=== PATIENT | female | born 1940 | race Caucasian/White ===

== ENCOUNTER → 2016-06-16 | Outpatient (CLI) | payer MEDICARE ==
[~2016-06-16] MED LIST: CATHETER FLUSH 10 ML SYR IV PRN; IOHEXOL 350 MG/ML 100 ML (OMNIPAQUE 350) VIAL IV ONE; NS 100 ML (IVPB) BAG IV ONE
--- OUTSIDE RECORDS SUMMARY | 2016-06-16 12:43 | XMS REPORT | Continuity of Care Document ---
Author Author [facility] Organization [facility] Address Unknown Phone Unavailable Allergies Medications Problems Date Dx Coded Attending Type Code Diagnosis Diagnosed By 04/03/2015 Ot 599.70 04/03/2015 Ot 789.00 04/03/2015 Ot 785.6 04/03/2015 Ot 789.00 04/03/2015 Ot 780.79 04/03/2015 Ot 786.09 04/03/2015 Ot 789.01 04/03/2015 Ot V58.69 04/03/2015 JUAN SWAN PRODUCTION QUALITY MANAGER Ot 780.79 04/03/2015 JUAN SWAN PRODUCTION QUALITY MANAGER Ot 786.50 04/08/2015 CANDI SWAN DO Ot R10.9 04/08/2015 CANDI SWAN DO Ot R31.9 05/07/2015 CANDI SWAN DO Ot R10.9 05/07/2015 CANDI SWAN DO Ot R31.9 05/22/2015 CANDI SWAN DO Ot R10.9 05/22/2015 CANDI SWAN DO Ot R31.9 12/23/2015 Ot 599.70 HEMATURIA, UNSPECIFIED 12/23/2015 Ot 789.00 ABDOMINAL PAIN, UNSPECIFIED SITE 12/23/2015 Ot 785.6 ENLARGEMENT LYMPH NODES 12/23/2015 Ot 789.00 ABDOMINAL PAIN, UNSPECIFIED SITE 12/23/2015 Ot 780.79 OTH MALAISE FATIGUE 12/23/2015 Ot 786.09 RESPIRATORY ABNORM NEC 12/23/2015 Ot 789.01 ABDOMINAL PAIN, RIGHT UPPER QUADRANT 12/23/2015 Ot V58.69 OTH MED,LT,CURRENT USE 12/23/2015 JUAN SWAN PRODUCTION QUALITY MANAGER Ot 780.79 OTH MALAISE FATIGUE 12/23/2015 JUAN SWAN PRODUCTION QUALITY MANAGER Ot 786.50 CHEST PAIN NOS 12/23/2015 CANDI SWAN DO Ot R10.9 UNSPECIFIED ABDOMINAL PAIN 12/23/2015 CANDI SWAN DO Ot R31.9 HEMATURIA, UNSPECIFIED 12/25/2015 JUAN SWAN Ot 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 Visit Date/Time Discharge Status Pt. Type Provider Facility Loc./Unit Complaint [id number] 04/03/2015 14:39:00 2014 23:59:59 CLS Outpatient CANDI SWAN DO [facility] RAD FLANK PAIN, HEMATURIA [id number] 11/01/2012 07:19:00 2012 23:59:59 CLS Outpatient JUAN SWAN [facility] CARD FATIGUE [id number] 12/23/2015 10:23:00 ACT Outpatient JUAN SWAN [facility] RAD THYROMEGALY [id number] 03/23/2012 10:51:00 Document Registration [id number] 06/03/2011 08:37:00 Document Registration [id number] 05/07/2011 12:46:00 Document Registration
[2016-06-16 12:59] LABS: BASOPHILS % (AUTO) 0 % (0-10); EOSINOPHILS % (AUTO) 1 % (0-10); LYMPHOCYTES # (AUTO) 1.2 X 10^3 (1.0-4.0); LYMPHOCYTES % (AUTO) 26 % (12-44); MEAN CORPUSCULAR HEMOGLOBIN 30 PG (25-34); MEAN CORPUSCULAR HGB CONC 33 G/DL (32-36); MEAN CORPUSCULAR VOLUME 93 FL (80-99); MEAN PLATELET VOLUME 10.5 FL (7.4-10.4); MONOCYTES # (AUTO) 0.6 X 10^3 (0.0-1.0); MONOCYTES % (AUTO) 13 % (0-12); NEUTROPHILS # (AUTO) 2.8 X 10^3 (1.8-7.8); NEUTROPHILS % (AUTO) 61 % (42-75); PLATELET COUNT 178 10^3/uL (130-400); RED BLOOD COUNT 4.37 10^6/uL (4.35-5.85); RED CELL DISTRIBUTION WIDTH 13.7 % (10.0-14.5); WHITE BLOOD COUNT 4.6 10^3/uL (4.3-11.0)
[2016-06-16 13:12] LABS: ALANINE AMINOTRANSFERASE 24 U/L (0-55); ALBUMIN 4.3 G/DL (3.2-4.5); ANION GAP 7 MMOL/L (5-14); ASPARTATE AMINO TRANSFERASE 26 U/L (5-34); BILIRUBIN,TOTAL 0.3 MG/DL (0.1-1.0); BLOOD UREA NITROGEN 14 MG/DL (7-18); BUN/CREATININE RATIO 18; CALCIUM 9.9 MG/DL (8.5-10.1); CARBON DIOXIDE 28 MMOL/L (21-32); CHLORIDE 102 MMOL/L (98-107); CREATININE SERUM 0.77 MG/DL (0.60-1.30); GFR ESTIMATED > 60; GLUCOSE 99 MG/DL (70-105); POTASSIUM 4.1 MMOL/L (3.6-5.0); SODIUM 137 MMOL/L (135-145); TOTAL PROTEIN 7.6 G/DL (6.4-8.2)
--- NOTE | 2016-06-16 14:00 | Diagnostic Imaging Report ---
PROCEDURE: CT abdomen and pelvis with and without contrast. TECHNIQUE: Precontrast acquisitions were acquired through the abdomen and pelvis. Multiple contiguous axial images were obtained through the abdomen and pelvis after the administration of intravenous contrast. INDICATION: Flank pain. CONTRAST: 100 mL of Omnipaque 350 was administered intravenously. FINDINGS: The lung bases demonstrate no significant consolidation. The liver, gallbladder, spleen, pancreas, and adrenals appear unremarkable. There are surgical clips seen in the retroperitoneum which may relate to prior lymph node dissection. Correlate with surgical history. The abdominal aorta is normal in caliber. No eusebio-aortic significantly enlarged lymph nodes are seen. The kidneys have symmetric enhancement and contrast excretion. There is no hydronephrosis. The unenhanced phase demonstrates no stones. The colon demonstrates numerous diverticuli, particularly in the sigmoid segment, without evidence of diverticulitis. The appendix appears normal. No bowel obstruction. No significant free fluid or fluid collection in the abdomen or pelvis is seen. The uterus and adnexa appear grossly unremarkable. The osseous structures demonstrate degenerative changes in the mid lumbar spine with a vacuum disc at the L3-4 level. IMPRESSION: 1. Diverticulosis. No diverticulitis. 2. No urinary tract stones. No hydronephrosis. Dictated by: Dictated on workstation # [id number]
[2016-06-16 14:20] LABS: ERYTHROCYTE SEDIMENTATION RATE 40 MM/HR (0-30)
== END ==
LOC: RAD 12:39
PROVIDERS: ATTEND Nurse Practitioner Family
DX: K57.90 Diverticulosis of intestine, part unspecified, without perforation or abscess without bleeding (principal); R31.9 Hematuria, unspecified
CPT/HCPCS: 36415; 74178; 80053; 85025; 85652

== ENCOUNTER → 2016-08-21 | Outpatient (CLI) | payer MEDICARE ==
--- NOTE | 2016-08-21 16:52 | Diagnostic Imaging Report ---
PA and bilateral rib radiographs obtained. INDICATION: Bilateral rib pain. Limited range of motion. Patient has had surgery in the upper neck for rib resection presumably related to cervical ribs. FINDINGS: No obvious cervical ribs are seen on this radiograph. There are rudimentary or poorly visualized 12th ribs bilaterally. There is no rib fracture. Surgical clips in the neck and thoracic inlet are seen. The lungs are hyperinflated. There is calcified granuloma seen in the left upper lobe and in the mediastinum. The heart size is at the upper limits of normal. No effusion or pneumothorax. IMPRESSION: Prominent cardiac size. No acute process. Dictated by: Dictated on workstation # [id number]
== END ==
LOC: RAD 10:59
PROVIDERS: ATTEND Nurse Practitioner Family
DX: R07.81 Pleurodynia (principal)
CPT/HCPCS: 71110

== ENCOUNTER 2021-11-26 12:50 | Outpatient (CLI) | payer MEDICARE ==
[~2021-11-26] VITALS: Ht 170.2 cm; Wt 62.3 kg
[2021-11-26] MEDS ORDERED: LACTATED RINGERS 1,000 ML IV ONE (13:15)
[2021-11-26 15:34] VITALS: BP 101/50
== END 2021-11-26 15:34 | disposition home or self-care (01) ==
LOC: SDC 12:50
PROVIDERS: ATTEND Internal Medicine
DX: E86.0 Dehydration (principal); U09.9 Post COVID-19 condition, unspecified
CPT/HCPCS: 96360

== ENCOUNTER 2021-12-03 11:05 | Outpatient (CLI) | payer MEDICARE ==
[~2021-12-03] VITALS: Ht 170.2 cm; Wt 62.3 kg
[2021-12-03] MEDS ORDERED: LACTATED RINGERS 1,000 ML IV ONE (11:30)
[2021-12-03 12:52] VITALS: BP 137/58
== END 2021-12-03 11:15 | disposition home or self-care (01) ==
LOC: SDC 11:05
PROVIDERS: ATTEND Nurse Practitioner Family
DX: E86.0 Dehydration (principal); R53.83 Other fatigue
CPT/HCPCS: 96360